=== PATIENT | male | born 1950 | race Caucasian/White ===

== ENCOUNTER → 2020-01-26 12:52 | Outpatient (BNVA) | payer MEDICARE, SELFPAY | PROVIDERS: Family Provider Family Medicine; PCP Family Medicine; Visit Provider Nurse Practitioner | DX: M25.572 Pain in left ankle and joints of left foot (principal) | CPT/HCPCS: 73610 ==

== ENCOUNTER 2020-02-18 07:42 | Outpatient (CLI) | payer MEDICARE, SELFPAY ==
--- NOTE | 2020-02-18 07:49 | US_ITS ---
WS: [id number] RENAL ULTRASOUND HISTORY: UTI/ACUTE RENAL FAILURE COMPARISON: None available. TECHNIQUE: 2-D and color Doppler imaging of the kidney submitted. Right kidney: 10.6 cm x 4.3 cm x 6.0 cm. Normal echogenicity with no hydronephrosis or mass. Left kidney: 11.2 cm x 4.6 cm x 5.3 cm. Normal echogenicity with no hydronephrosis or mass. Aorta: Normal. Urinary Bladder: Normal distention. Enlarged prostate gland measures 4.1 x 3.7 x 3.5 cm. Central calcification. US/US renal BI* [id number] IMPRESSION: Normal renal ultrasound.
== END 2020-02-18 07:43 | disposition home or self-care (01) ==
LOC: US 07:42
PROVIDERS: PCP Family Medicine; Visit Provider Family Medicine
DX: N39.0 Urinary tract infection, site not specified (principal); N17.9 Acute kidney failure, unspecified
CPT/HCPCS: 76770

== ENCOUNTER 2020-05-16 08:27 | Outpatient (CLI) | payer MEDICARE, SELFPAY ==
--- NOTE | 2020-05-16 08:34 | CT_ITS ---
WS: [id number] CT ABDOMEN PELVIS TECHNIQUE: Noncontrast CT of the abdomen and pelvis with coronal and sagittal reformatted images. CLINICAL INFORMATION: RENAL PAIN, RENAL FAILURE ACUTE COMPARISON: None. DLP: 1165.[address] scans at [facility] use at least one of these dose optimization techniques: automat ed exposure control; mA and/or kV adjustment per patient size (includes targeted exams where dose is matched to clinical indication); or iterative reconstruction. FINDINGS: Noncontrast liver is normal. Normal gallbladder. Noncontrast spleen is normal. Normal GE junction. Valarie ng bases are well aerated. Mild fatty atrophy of the pancreas. Adrenal glands are normal. No obstruct ing renal or ureteral calculi. No hydronephrosis in either kidney. Moderate atheromatous disease abdominal aorta. Slightly aneurysmal distal abdominal aorta measuring 2 .5 x 2.5 CM. No periaortic or retroperitoneal lymphadenopathy. Sigmoid diverticulosis. No evidence of acute diverticulitis. Prominent lymph node in the rios hepati s measuring 9 mm. Bladder is contracted. Mild diffuse bladder wall thickening can be seen with chroni c cystitis or bladder outlet obstruction. Prominent prostate measuring 3.0 x5.3 CM. Fat-containing le ft greater than right inguinal hernias. CT/CT kidney stone [id number] IMPRESSION: 1. No obstructing renal or ureteral calculi. No hydronephrosis. 2. Sigmoid diverticulosis. No evidence of acute diverticulitis. 3. Mild diffuse bladder wall thickening can be seen with chronic cystitis or b ladder outlet obstruction. 4. Slightly prominent prostate measuring 3.0 x 5.3 CM. Recommend correlation P SA. 5. Incidental fat-containing inguinal hernia. Small left greater than right fa t-containing inguinal hernias.
== END 2020-05-16 08:28 | disposition home or self-care (01) ==
LOC: RADWPI 08:32
PROVIDERS: PCP Family Medicine; Visit Provider Family Medicine
DX: H66.90 Otitis media, unspecified, unspecified ear (principal); N28.9 Disorder of kidney and ureter, unspecified; N17.9 Acute kidney failure, unspecified; K40.90 Unilateral inguinal hernia, without obstruction or gangrene, not specified as recurrent; N40.0 Benign prostatic hyperplasia without lower urinary tract symptoms; K57.30 Diverticulosis of large intestine without perforation or abscess without bleeding
CPT/HCPCS: 74176

== ENCOUNTER → 2020-06-06 10:05 | Outpatient (BNVA) | payer MEDICARE, SELFPAY | PROVIDERS: PCP Family Medicine; Referring Provider Family Medicine; Visit Provider Urology | DX: Z12.5 Encounter for screening for malignant neoplasm of prostate (principal); N32.89 Other specified disorders of bladder | CPT/HCPCS: 81003; G0103 ==

== ENCOUNTER 2020-08-15 07:38 | Outpatient (CLI) | payer MEDICARE, SELFPAY ==
[2020-08-15 08:08] VITALS: BMI 31.1
--- NOTE | 2020-08-15 08:08 | ECG_ITS ---
[facility] Test Date: 2020-08-15 Pat Name: Jose Guadalupe Sosa Department: Room: Gender: Male Center Medical Specialist: : 1950 Requested By: Malik Phillips Order Number: [id number] Woody MD: Divya Lawrence M.D. Interpretive Statements NAME OF STUDY: EXERCISE SESTAMIBI STRESS TEST INDICATION: Chest Pain, jameson PROCEDURE: The baseline electrocardiogram showed normal sinus rhythm with normal ST-Ts. At the baseline, the patient's blood pressure was 139/63 mm Hg with a heart rate of 88. The patient exercised for 6 minutes on a standard Seven protocol. Patient attained a maximum heart rate of 137 beats per minute(91% of the maximum predicted heart rate) with a blood pressure at the peak exercise of 190/60 mm Hg. The EKG at the peak exercise revealed no significant changes. Patient did not have any chest pain or any significant arrhythmis with the exercise Sestamibi was injected 1 minute prior to the peak exercise During the recovery phase, there were no new changes. Blood pressure at the end of the recovery phase was 153/59 mm Hg with a heart rate of 88 per minute. CONCLUSION: 1. No significant EKG changes with the treadmill exercise 2. No exercise-induced chest pain or cardiac arrhythmia 3. Impaired exercise tolerance, attained a maximum of 7.0 METs 4. Sestamibi/Sestamibi perfusion results pending; see separate report. Electronically Signed On 08-18-2020 23:27:57 CDT by Divya Lawrence M.D. [id number]
--- NOTE | 2020-08-15 08:10 | NMCV_ITS ---
NM billy perf SPECT r/s* [id number] Jose Guadalupe Sosa Age: 69 Gender: M : 1950 Exam Date: 08/15/2020 09:01 Ordering Phys: Malik Lockwood MD Technologist: JAMEE Naranjo Exam Location: [facility] Indications: CHEST PAIN STRESS TEST Please see separate stress test report in [facility] for full findings IMAGE PROTOCOL Rest/Stress 1 Exercise Day Radiopharmaceutical Dose (mCi) Administration Site Administered by Rest: Tc-99m 10.6 IV JAMEE Naranjo Sestamibi Stress:Tc-99m 32.7 IV Zuleyka Lino, HOME APPRAISER Sestamibi Rest: 15-Aug-2020 60 Discovery 630 Stress: 15-Aug-2020 15 Discovery 630 Radiopharmaceutical was injected at 85 % maximum heart rate. Images obtained in supine and prone position. SPECT RESULTS Technical Quality: Excellent Raw Data Analysis: Normal Image Corrections: No attenuation or motion correction applied Summed Stress Score: 0 Summed Rest Score: 0 Summed Difference Score: 0 PERFUSION FINDINGS Fairly uniform myocardial tracer uptake with no significant perfusion abnormalities FUNCTIONAL RESULTS (calculated via Gated SPECT) Stress Image LV EF (%): 77 Stress EDV (mL):70 TID: 0.59 Stress ESV (mL):16 FUNCTIONAL FINDINGS: Segmental wall motion analysis revealing no gross wall motion normalities IMPRESSIONS 1. Unremarkable myocardial perfusion imaging 2. Normal LV ejection fraction 77%. 3. LV wall motion analysis revealing no gross wall motion normalities. 4. Normal LV volume. No significant coronary ischemia, based on the above findings Dr Divya Lawrence MD FACC (Electronically Signed) Final Date: 15 August 2020 14:33 S
--- NOTE | 2020-08-15 11:16 | SUR.PREOP ---
Patient reports no pain or discomfort prior to the start of the procedure.
[2020-08-15 11:17] VITALS: BP 153/59; PULSE 88
== END 2020-08-15 07:39 | disposition home or self-care (01) ==
PROVIDERS: PCP Family Medicine; Visit Provider Family Medicine
DX: R07.9 Chest pain, unspecified (principal); R06.09 Other forms of dyspnea
CPT/HCPCS: 78452; 93017; A9500

== ENCOUNTER → 2020-09-04 11:05 | Outpatient (BNVA) | payer MEDICARE, SELFPAY | PROVIDERS: PCP Family Medicine; Visit Provider Nurse Practitioner Family | DX: N32.89 Other specified disorders of bladder (principal); N40.1 Benign prostatic hyperplasia with lower urinary tract symptoms | CPT/HCPCS: 81003 ==

== ENCOUNTER → 2020-11-04 09:35 | Outpatient (BNVA) | payer MEDICARE, SELFPAY | PROVIDERS: PCP Family Medicine; Visit Provider Urology | DX: N40.1 Benign prostatic hyperplasia with lower urinary tract symptoms (principal); R35.1 Nocturia | CPT/HCPCS: 81003 ==

== ENCOUNTER → 2021-01-05 10:37 | Outpatient (BNVA) | payer MEDICARE, SELFPAY | PROVIDERS: PCP Family Medicine; Visit Provider Urology | DX: N40.1 Benign prostatic hyperplasia with lower urinary tract symptoms (principal); R35.1 Nocturia | CPT/HCPCS: 81003; 87086 ==

== ENCOUNTER → 2021-07-13 15:26 | Outpatient (BNVA) | payer MEDICARE, SELFPAY | PROVIDERS: PCP Family Medicine; Visit Provider Urology | DX: N40.1 Benign prostatic hyperplasia with lower urinary tract symptoms (principal) | CPT/HCPCS: 81003 ==

== ENCOUNTER 2021-11-04 12:28 | Outpatient (CLI) | payer MEDICARE, SELFPAY ==
--- NOTE | 2021-11-04 13:10 | XR_ITS ---
WS: [id number] LEFT KNEE: 2 VIEW(S) TECHNIQUE: AP and lateral. HISTORY: ARTHRITIS/GOUT COMPARISON: 04/12/2017 No fracture or dislocation. Mild tricompartment osteoarthritis. No erosions. Mild spurring of the tibial spines. Small suprapatellar joint effusion. No soft tissue abnormality. XR/XR knee LT 1-2V [id number] IMPRESSION: Mild tricompartment osteoarthritis. Small joint effusion.
--- NOTE | 2021-11-04 13:10 | XR_ITS ---
WS: [id number] RIGHT KNEE: 2 VIEW(S) TECHNIQUE: AP and lateral. HISTORY: ARTHRITIS/GOUT COMPARISON: None. Mild tricompartment osteoarthritis. Joint space narrowing and small spurs. Osteophytes from the super ior and inferior patella. No acute fracture or dislocation. No joint effusion. IMPRESSION: Mild tricompartment osteoarthritis.
[2021-11-04 14:55] LABS: Basophils % 0.5 %; Eosinophils # 0.2 10^3/uL (0.0-0.8); Eosinophils % 2.3 %; Hematocrit 41.4 % (42.0-52.0); Hemoglobin 13.7 g/dL (11.7-16.6); Lymphocytes # 2.3 10^3/uL (0.8-4.8); Lymphocytes % 31.8 %; Mean Corpuscular HGB Conc 33.1 g/dL (30.0-36.0); Mean Corpuscular Hemoglobin 31.5 pg (28.0-34.0); Mean Corpuscular Volume 95.2 fl (80-94); Mean Platelet Volume 10.2 fL (7.4-10.4); Monocytes # 0.5 10^3/uL (0.2-0.9); Monocytes % 6.9 %; Neutrophils # 4.27 10^3/uL (1.8-7.7); Nucleated Red Blood Cells % 0 %; Platelet Count 228 10^3/cmm (130-400); Red Blood Count 4.35 10^6/uL (4.1-5.3); Red Cell Distribution Width 13.7 % (12.1-15.1); White Blood Count 7.4 10^3/uL (4.0-10.0)
[2021-11-04 15:14] LABS: Alanine Aminotransferase 30 U/L (0-41); Albumin Level 4.4 g/dL (3.5-5.2); Alkaline Phosphatase 149 IU/L (40-130); Anion Gap 15.4 (5-19); Aspartate Amino Transferase 24 U/L (0-40); Blood Urea Nitrogen 22 mg/dL (8-23); C Reactive Protein 6.9 mg/L (0.0-4.9); Calcium 9.6 mg/dL (8.5-10.5); Carbon Dioxide 26 mmol/L (22-29); Chloride 101 mmol/L (98-107); Globulin 3.3 g/dL (1.3-4.6); Glucose 106 mg/dL (65-115); Osmolality Calculated 290 mOsm/kg (285-295); Potassium 4.4 mmol/L (3.5-5.1); Sodium 138 mmol/L (136-145); Total Bilirubin 0.3 mg/dL (0.15-1.2); Total Protein 7.7 g/dL (6.6-8.7); Uric Acid 4.5 mg/dL (3.4-7.0)
[2021-11-06 13:16] LABS: Erythrocyte Sedimentation Rate 45 mm/hr (0-10)
[2021-11-06 16:47] LABS: Anti-Double Strand DNA AB 1 IU/mL; Jo-1 Antibody <1.0 NEG AI (<1.0 NEG); SM/RNP Antibodies <1.0 NEG AI (<1.0 NEG); SS-B/LA IGG <1.0 NEG AI (<1.0 NEG); Scleroderma Ab(Scl-70) Ab <1.0 NEG AI (<1.0 NEG); Ss-A/Ro Igg <1.0 NEG AI (<1.0 NEG)
== END 2021-11-04 12:29 | disposition home or self-care (01) ==
PROVIDERS: PCP Family Medicine; Visit Provider Family Medicine
DX: M19.90 Unspecified osteoarthritis, unspecified site (principal); M10.9 Gout, unspecified
CPT/HCPCS: 73560; 80053; 84550; 85025; 85651; 86140; 86225; 86235; 86431

== ENCOUNTER → 2021-12-11 10:25 | Outpatient (BNVA) | payer MEDICARE, SELFPAY | PROVIDERS: PCP Family Medicine; Visit Provider Family Medicine | DX: N18.30 Chronic kidney disease, stage 3 unspecified (principal); R35.1 Nocturia; N40.1 Benign prostatic hyperplasia with lower urinary tract symptoms | CPT/HCPCS: 80069; 82043; 85025 ==

== ENCOUNTER → 2022-07-19 13:33 | Outpatient (BNVA) | payer MEDICARE, SELFPAY | PROVIDERS: PCP Family Medicine; Visit Provider Podiatrist Foot & Ankle Surgery | DX: M72.2 Plantar fascial fibromatosis (principal); M21.6X2 Other acquired deformities of left foot | CPT/HCPCS: 20550; 73630; 99204 ==

== ENCOUNTER → 2022-08-03 14:50 | Outpatient (BNVA) | payer MEDICARE, SELFPAY | PROVIDERS: PCP Family Medicine; Visit Provider Podiatrist Foot & Ankle Surgery | DX: M72.2 Plantar fascial fibromatosis (principal); M21.6X2 Other acquired deformities of left foot | CPT/HCPCS: 99213 ==

== ENCOUNTER → 2022-08-17 14:12 | Outpatient (BNVA) | payer MEDICARE, SELFPAY | PROVIDERS: PCP Family Medicine; Visit Provider Podiatrist Foot & Ankle Surgery | DX: M72.2 Plantar fascial fibromatosis (principal); M21.6X2 Other acquired deformities of left foot | CPT/HCPCS: 99213 ==

== ENCOUNTER → 2022-12-21 09:55 | Outpatient (BNVA) | payer MEDICARE, SELFPAY | PROVIDERS: PCP Family Medicine; Visit Provider Family Medicine | DX: I10 Essential (primary) hypertension (principal); R35.1 Nocturia; N40.1 Benign prostatic hyperplasia with lower urinary tract symptoms; M75.101 Unspecified rotator cuff tear or rupture of right shoulder, not specified as traumatic; M12.811 Other specific arthropathies, not elsewhere classified, right shoulder; M12.812 Other specific arthropathies, not elsewhere classified, left shoulder; M75.102 Unspecified rotator cuff tear or rupture of left shoulder, not specified as traumatic | CPT/HCPCS: 80053; 80061; 82043; 84153; 85025 ==

== ENCOUNTER → 2023-01-18 08:58 | Outpatient (BNVA) | payer MEDICARE, SELFPAY | PROVIDERS: PCP Family Medicine; Referring Provider Family Medicine; Visit Provider Student in an Organized Health Care Education/Training Program | DX: M12.812 Other specific arthropathies, not elsewhere classified, left shoulder; M75.42 Impingement syndrome of left shoulder | CPT/HCPCS: 20610; 73030; 99204; J3301 ==

== ENCOUNTER → 2023-01-20 10:13 | Outpatient (BNVA) | payer MEDICARE, SELFPAY | PROVIDERS: PCP Family Medicine; Referring Provider Family Medicine; Visit Provider Dermatology | DX: L57.0 Actinic keratosis (principal); L82.0 Inflamed seborrheic keratosis; L82.1 Other seborrheic keratosis; L72.0 Epidermal cyst; D18.01 Hemangioma of skin and subcutaneous tissue; L73.8 Other specified follicular disorders; Z85.828 Personal history of other malignant neoplasm of skin | CPT/HCPCS: 17000; 17003; 17110; 99203 ==

== ENCOUNTER 2023-01-26 07:01 | Outpatient (RCR) | payer MEDICARE, SELFPAY | END 2023-02-05 23:59 | disposition home or self-care (01) | LOC: SPT 07:01 | PROVIDERS: PCP Family Medicine; Visit Provider Student in an Organized Health Care Education/Training Program | DX: M75.42 Impingement syndrome of left shoulder (principal) | CPT/HCPCS: 97110; 97162 ==

== ENCOUNTER 2023-02-06 06:00 | Outpatient (RCR) | payer MEDICARE, SELFPAY | END 2023-03-08 23:59 | disposition home or self-care (01) | LOC: SPT 06:00 | PROVIDERS: PCP Family Medicine; Visit Provider Student in an Organized Health Care Education/Training Program | DX: M75.42 Impingement syndrome of left shoulder (principal) | CPT/HCPCS: 97110; G0283 ==

== ENCOUNTER 2023-03-09 06:00 | Outpatient (RCR) | payer MEDICARE, SELFPAY | END 2023-03-24 23:59 | disposition home or self-care (01) | LOC: SPT 06:00 | PROVIDERS: PCP Family Medicine; Visit Provider Student in an Organized Health Care Education/Training Program | DX: M75.42 Impingement syndrome of left shoulder (principal) | CPT/HCPCS: 97110 ==

== ENCOUNTER → 2023-04-21 09:48 | Outpatient (BNVA) | payer MEDICARE, SELFPAY | PROVIDERS: PCP Family Medicine; Visit Provider Student in an Organized Health Care Education/Training Program | DX: M75.101 Unspecified rotator cuff tear or rupture of right shoulder, not specified as traumatic (principal); M12.811 Other specific arthropathies, not elsewhere classified, right shoulder; M12.812 Other specific arthropathies, not elsewhere classified, left shoulder; M75.102 Unspecified rotator cuff tear or rupture of left shoulder, not specified as traumatic | CPT/HCPCS: 20610; 99213; J3301 ==

== ENCOUNTER → 2023-06-30 09:43 | Outpatient (BNVA) | payer MEDICARE, SELFPAY | PROVIDERS: PCP Family Medicine; Visit Provider Student in an Organized Health Care Education/Training Program | DX: S46.002A Unspecified injury of muscle(s) and tendon(s) of the rotator cuff of left shoulder, initial encounter; X58.XXXA Exposure to other specified factors, initial encounter | CPT/HCPCS: 73030; 99213 ==

== ENCOUNTER → 2023-07-26 08:12 | Outpatient (BNVA) | payer MEDICARE, SELFPAY | PROVIDERS: PCP Family Medicine; Visit Provider Student in an Organized Health Care Education/Training Program | DX: M75.101 Unspecified rotator cuff tear or rupture of right shoulder, not specified as traumatic; M12.811 Other specific arthropathies, not elsewhere classified, right shoulder; M12.812 Other specific arthropathies, not elsewhere classified, left shoulder; M75.102 Unspecified rotator cuff tear or rupture of left shoulder, not specified as traumatic | CPT/HCPCS: 20610; 99213; J3301 ==

== ENCOUNTER 2023-08-10 08:42 | Outpatient (CLI) | payer MEDICARE, SELFPAY ==
--- NOTE | 2023-08-10 09:30 | MR_ITS ---
WS: [id number] MRI LEFT SHOULDER HISTORY: shoulder pain COMPARISON: 01/01/2014 TECHNIQUE: Multiplanar sequences of the shoulder joint are submitted. Moderate AC joint arthritis. Osteophyte formation from the distal clavicle and acromion encroaching u huber the myotendinous portion of the supraspinatus. Similar to the prior study. There is fluid within the AC joint. Mild subacromial impingement due to downsloping of the acromion. Biceps tendon normal p osition in the bicipital groove. No os acromion. Moderately high riding humeral head. Full-thickness tear of the supraspinatus tendon distally. Tendon is retracted to the medial humeral head. There is irregularity and fraying along both the bursal and articular surfaces of the tendon. There is a large fluid gap distally. Significant progression of roger praspinatus muscle atrophy since the prior exam. Insertion site tear of the infraspinatus tendon is identified. There is fluid extension intrasubstanc e along the tendon sheath. This tear was present on the prior study but progressed. Moderate progress prosper atrophy of the infraspinatus muscle. Subscapularis tendon is intact. The previously described insertion site tear is not readily identifie d on today's exam. There is increased thickening and T2 signal within the subscapularis tendon most c onsistent with advanced tendinopathy. Progressive atrophy of the subscapularis muscle. Increased T2 signal extends into the rotator cuff interval. Mild osteophytic ridging around the humeral head. Internal derangement involving the labrum. Surface irregularities. No definite tears are identified. Loss of cartilage surround the humeral head and gle noid with osteoarthritic changes. IMPRESSION: 1. Complete tear of the supraspinatus tendon with retraction to the medial humeral head. Fraying tobias ng the surfaces of the retracted supraspinatus tendon. This was also described on 01/01/2014. 2. Insertion site tear of the infraspinatus tendon with intrasubstance degeneration. 3. Marked tendinopathy in subscapularis tendon but no tear is identified. 4. There is been significant progressive atrophy and volume loss involving the supraspinatus muscle. Lesser atrophy and volume loss in the infraspinatus and subscapularis muscles. 5. Moderate AC joint arthritis with osteophyte encroachment upon the supraspinatus myotendinous inse rtion site. 6. Degenerative changes in the labrum but no tear identified. 7. 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
== END 2023-08-10 08:43 | disposition home or self-care (01) ==
LOC: RAD 08:45
PROVIDERS: PCP Family Medicine; Visit Provider Student in an Organized Health Care Education/Training Program
DX: M25.512 Pain in left shoulder (principal); M75.122 Complete rotator cuff tear or rupture of left shoulder, not specified as traumatic; M19.012 Primary osteoarthritis, left shoulder
CPT/HCPCS: 73221

== ENCOUNTER → 2023-08-30 07:47 | Outpatient (BNVA) | payer MEDICARE, SELFPAY | PROVIDERS: PCP Family Medicine; Visit Provider Student in an Organized Health Care Education/Training Program | DX: M75.102 Unspecified rotator cuff tear or rupture of left shoulder, not specified as traumatic (principal); M75.42 Impingement syndrome of left shoulder; M75.22 Bicipital tendinitis, left shoulder; M19.012 Primary osteoarthritis, left shoulder | CPT/HCPCS: 99214 ==

== ENCOUNTER → 2023-09-20 11:09 | Outpatient (BNVA) | payer MEDICARE, SELFPAY | PROVIDERS: PCP Family Medicine; Visit Provider Nurse Practitioner Family | DX: L57.0 Actinic keratosis (principal); L82.0 Inflamed seborrheic keratosis; L82.1 Other seborrheic keratosis; L72.0 Epidermal cyst; D18.01 Hemangioma of skin and subcutaneous tissue | CPT/HCPCS: 17000; 17110; 99213 ==

== ENCOUNTER 2023-09-21 10:12 | Day surgery (SDC) | payer MEDICARE, SELFPAY ==
[2023-09-21] VITALS (11 sets, daily range): BP systolic 145–171; BP diastolic 56–88; PULSE 58–69; RESP 15–18; TEMP 36.1–36.6; O2SAT 92–100
[2023-09-21] MEDS: sodium chloride 0.9% 1,000 ML 30 ML IV (10:39)
[2023-09-21] MEDS: acetaminophen 1,000 MG/100 ML PIGGYBACK 400 MG IV (10:42)
--- NOTE | 2023-09-21 10:42 | ANES.PREANE2 ---
Pre-Anesthetic Assessment Height/Weight: Height 1.83 m Weight 102.058 kg Temp Pulse Resp BP Pulse Ox O2 Del Method 97.6 F 58 L 18 159/88 97 Room Air 09/21/23 10:27 09/21/23 10:27 09/21/23 10:27 09/21/23 10:27 09/21/23 10:09/21/23 10:27 Operation Date: 09/21/23 12:00 Proposed Procedures p Shoulder Arthroscopy(Left) - Ronald Cannon, DO s Subacromial Decompression(Left) - Ronald Cannon, DO s AC Joint Resection(Left) - Ronald Nina, DO s Rotator Cuff Repair - Arthroscopy Versus debridement(Left) - Ronald Nina, DO s Bicep Tenotomy Versus Bicep tenodesis(Left) - Ronald Cannon, DO s Subacromial Ballon Spacer / possible(Left) - Ronald Nina, DO Familial anesthetic complications: none Was Beta Jen taken within 24 hours: Yes Was Clonidine taken within 24 hours: N/A Last intake: Intake Last Liquid Date 09/20/23 Last Liquid Time 23:00 Last Solid Date 09/20/23 Last Solid Time 23:00 Social No alcohol and No tobacco Occasionally smokes radha Exam alert, oriented x 3, clear to auscultation bilaterally and regular rate & rhythm Airway Submandibular: within normal limits Cervical ROM: within normal limits Mallampati: Class II Dentition: chipped CV/HEM Hypertension Metabolic Hyperlipidemia Musc/skel Osteoarthritis/DJD Neuropsych chronic opioid Anesthetic Plan ASA status: 3 Anesthesia: General and Regional (specify below) (Left interscalene nerve blk) Medications/Allergies Home Medications Medication Instructions Recorded Confirmed Last Taken Type bupropion HCl 300 mg 24 hr tablet, 300 mg PO QAM #90 tabs 06/09/23 09/20/23 09/19/23 Rx extended release hydrocodone 5 mg-acetaminophen 325 1 tab PO Q8H PRN pain 30 days #90 06/20/23 09/20/23 Unknown Rx mg tablet tabs simvastatin 20 mg tablet (Zocor) 20 mg PO .at bedtime #90 tabs 06/20/23 09/20/23 09/19/23 Rx latanoprost 0.005 % eye drops 1 drp ophthalmic (eye) DAILY 06/30/23 09/20/23 09/19/23 History allopurinol 300 mg tablet 300 mg PO DAILY #90 tabs 07/05/23 09/20/23 09/19/23 Rx amlodipine 10 mg tablet 10 mg PO DAILY 09/20/23 09/21/23 09/21/23 History metoprolol succinate 100 mg 100 mg PO DAILY 09/20/23 09/21/23 09/21/23 History tablet,extended release 24 hr tamsulosin 0.4 mg capsule 0.4 mg PO BEDTIME 09/20/23 09/20/23 09/19/23 History hydrocodone 7.5 mg-acetaminophen 1 tab PO Q6H PRN pain #20 tabs 09/21/23 Unknown Rx 325 mg tablet ondansetron 4 mg disintegrating 4 mg PO Q8H PRN nausea and 09/21/23 Unknown Rx tablet vomiting 3 days #9 tabs Allergies Allergy/AdvReac Type Severity Reaction Status Date / Time sulfamethoxazole Allergy Unknown Unknown Verified 08/30/23 08:02 [From Bactrim] trimethoprim [From Bactrim] Allergy Unknown Unknown Verified 08/30/23 08:02 [facility] Anesthesia Medical History Rotator cuff tear arthropathy of both shoulders BPH loc w urin obs/LUTS Diverticulosis CKD (chronic kidney disease), stage III MRSA (methicillin resistant Staphylococcus aureus) Gout Basal cell carcinoma of head 2 years ago HTN (hypertension) Bladder wall thickening Surgical History Hx of surgical amputation of finger Hx of cataract extraction Hx of detached retina repair Family History Father , AT AGE 52 CAD (coronary artery disease) Mother , at age 94 No problems noted. Social History Smoking and tobacco/nicotine status: former use of tobacco/nicotine Alcohol intake: current Alcohol intake frequency: 0-2 Drinks per Day Substance/Drug Use: never Marital status: / Current occupational status: retired Data Anesthesia Cardiac Studies: Sestamibi Stress Test (Cardiology) 08/15/20
[2023-09-21] MEDS: scopolamine 1.5 Patch 1 PATCH TRANSDERMA (10:45)
[2023-09-21] MEDS: ketorolac 30 mg/mL INJ IVP (10:46)
--- NOTE | 2023-09-21 10:47 | ECG_ITS ---
[facility] Test Date: 2023-09-21 Pat Name: Jose Guadalupe Sosa Department: Room: Gender: Male Resident Care Coordinator: : 1950 Requested By: Phil Gonzalez Order Number: [id number] Woody MD: Blair Alvarado M.D. Measurements Intervals [place] Rate: 57 P: 43 NE: 176 QRS: 6 QRSD: 95 T: 21 QT: 413 QTc: 405 Interpretive Statements SINUS BRADYCARDIA VOLTAGE CRITERIA FOR LVH [MEETS CRITERIA IN ONE OF: R(aVL), S(V1), R(V5), R(V5/V6)+S(V1)] No previous ECG available for comparison Electronically Signed On 09-21-2023 16:28:10 CDT by Blair Alvarado M.D. [id number]
[2023-09-21 11:16] LABS: Basophils % 0.4 %; Eosinophils # 0.1 10^3/uL (0.0-0.8); Eosinophils % 1.1 %; Lymphocytes # 2.5 10^3/uL (0.8-4.8); Lymphocytes % 29.3 %; Mean Corpuscular HGB Conc 33.7 g/dL (30-55); Mean Corpuscular Hemoglobin 33.1 pg (27-33); Mean Corpuscular Volume 98.3 fl (82-101); Monocytes # 0.6 10^3/uL (0.2-0.9); Monocytes % 6.6 %; Neutrophils % 61.9 %; Nucleated Red Blood Cells % 0 %; Platelet Count 187 10^3/cmm (157-399); Red Blood Count 4.17 10^6/uL (3.85-5.65); Red Cell Distribution Width 13.5 % (12.1-15.1); White Blood Count 8.54 10^3/uL (3.29-11.43)
--- NOTE | 2023-09-21 11:17 | W.PM.OPSUD ---
Surgery/Procedure H&P Update DATE OF PROCEDURE: September 21, 2023 DATE H&P PERFORMED: 08/25/23 H&P UPDATE INFORMATION: I have reviewed H&P completed within last 30 days, I have examined patient prior to procedure and No changes to prior documentation PREOP DIAGNOSIS: Left shoulder subacromial impingement, AC arthritis, rotator cuff tear sven PRIMARY INDICATION FOR PROCEDURE: Left shoulder subacromial impingement, AC joint arthritis rotator cuff tear, biceps tendinitis PLANNED PROCEDURE: Operation Date: 09/21/23 12:00 Proposed Procedures p Shoulder Arthroscopy(Left) - Ronald Wood DO s Subacromial Decompression(Left) - DO isabel Ozuna AC Joint Resection(Left) - DO isabel Ozuna Rotator Cuff Repair - Arthroscopy Versus debridement(Left) - DO isabel Ozuna Bicep Tenotomy Versus Bicep tenodesis(Left) - Ronald Wood DO s Subacromial Ballon Spacer / possible(Left) - Ronald Wood DO
[2023-09-21] MEDS: ceFAZolin 2,000 MG in sodium chloride 0.9% (plus) 50 ML 100 MG IV (11:25)
--- NOTE | 2023-09-21 11:32 | ANES.PROC ---
Anesthesia Procedures Procedure/Date: 09/21/23 Nerve Block ^: Nerve Block 1: Main Anesthesia: general anesthesia Time Out Performed: Yes Consent: requested by attending/covering physician, from patient, risks and benefits reviewed and patient agrees to proceed Nerve block location: interscalene (left) Anesthesia monitors applied: pulse oximetry, EKG, BP cuff and oxygen Nerve block position: semi sitting Anesthetic Used: ropivicaine 0.5% Amount of anesthesia used (mL): 30 Ultrasound used to: recognize landmarks and visualize and ID brachial plexus Nerve Stimulator Used?: No Interscalene/Femoral BLK: 2 stimuplex 22 g needle used for position and inplane approach Injection: neg aspiration of heme Patient Tolerated Procedure: well Complications: none
[2023-09-21 11:40] LABS: Anion Gap 14.4 (5-19); Blood Urea Nitrogen 17 mg/dL (8-23); Calcium 8.8 mg/dL (8.5-10.5); Carbon Dioxide 25 mmol/L (22-29); Chloride 105 mmol/L (98-107); Creatinine Clr Calc Pharmacy 81.3149; Glucose 91 mg/dL (65-115); Osmolality Calculated 291 mOsm/kg (285-295); Potassium 4.4 mmol/L (3.5-5.1); Sodium 140 mmol/L (136-145)
[2023-09-21] MEDS: EPINEPHrine 1 mg/mL INJ 2 MG XX (12:06)
--- NOTE | 2023-09-21 13:45 | P.BOP_ITS ---
Date of Procedure: [September 21, 2023] Surgeon: [Dr. Wood DO] Nutrition Faculty Member(s): [Sam Wood PA-C] Procedure(s) performed: 1.Left shoulder diagnostic and surgical arthroscopy 2. Biceps tendon tenotomy 3. Loose body removal 4. Labral debridement 5. Subacromial decompression 6. AC joint resection 7. Glenohumeral joint chondroplasty 8. Large rotator cuff repair (cable reconstruction) 9. Balloon spacer Findings of the procedure(s): [Left shoulder biceps tendinitis with fraying, loose bodies seen, labral tearing, subacromial bursitis, AC joint arthritis, glenohumeral joint with rating of 2-3 chondromalacia. Large rotator cuff tear] Estimated blood loss: [15 mL] Specimen(s) removed: [N/A] Post-operative diagnosis: [Left shoulder biceps tendinitis. loose bodies seen, labral tearing, subacromial bursitis, AC joint arthritis, glenohumeral joint with rating of 2-3 chondromalacia. Large rotator cuff tear]
--- NOTE | 2023-09-21 13:57 | PM.PACU ---
PACU note Narrative: Patient is a 72-year-old male just underwent a left shoulder scope with rotator cuff repair and balloon spacer. Patient transferred to PACU in stable condition. Pain is well controlled. shoulder Dressing on , dry and in place. Patient's operative arm is in a shoulder immobilizer. Patient is awake and alert and able to respond to my questions accordingly. Patient's fingers are warm with good perfusion. Normal cap refill under 2 seconds. Radial pulse 2+. unable to assess further range of motion in arm due to sling. sensation to hand intact Exam: awake Disposition: discharged
--- NOTE | 2023-09-21 13:59 | P.OP_ITS ---
Operative Report Date of procedure: September 21, 2023 Surgeon: Ronald Wood DO Manager Private: Sam Wood PA-C: PA was necessary for assistance in this case with shoulder positioning to execute the procedure, assistance with instrumentation, as well as implant fixation when necessary, assist with wound closure and dressing application. Procedure: Preoperative diagnosis: Left shoulder subacromial impingement, AC joint arthritis, rotator cuff tear, biceps tendinitis Post-op diagnosis:? Left?shoulder labral tear Left?shoulder biceps tendon tear Left?shoulder rotator cuff tear massive Left?shoulder AC joint arthritis Left?shoulder subacromial bursitis/impingement Left shoulder multiple loose bodies Left shoulder glenohumeral joint chondromalacia Procedure done: Left?shoulder diagnostic and surgical arthroscopy with arthroscopic rotator cuff repair (massive rotator cuff tear unable to perform complete full repair?rotator cable reconstruction/partial repair) Left?shoulder diagnostic and surgical arthroscopy biceps tenotomy Left?shoulder diagnostic and surgical arthroscopy labral debridement Left?shoulder diagnostic and surgical arthroscopy acromioclavicular joint resection Left?shoulder diagnostic and surgical arthroscopy subacromial decompression (acromioplasty and bursectomy) Left shoulder diagnostic and surgical arthroscopy with removal of multiple loose bodies Left shoulder diagnostic and surgical arthroscopy with glenohumeral joint chondroplasty Left shoulder diagnostic and surgical arthroscopy with subacromial balloon spacer given massive rotator cuff and only partial repair Surgeon: Ronald Wood DO Estimated blood loss: [15]mL IV fluids: See anesthesia record Implants: Arthrex 4.75 swivel lock x 2 Arthrex?scorpion and suture tape [employer] Inspace subacromial balloon spacer Complications: None Condition: stable Disposition: same day Brief History: Patient been seen and worked up in the outpatient setting for Left?shoulder pain.? Pt had an MRI which showed findings below.? Patient's failed conservative treatment and has weakness.? We talked about treatment options far as nonoperative and operative intervention..? We talked about risk benefits complication alternatives surgical nonsurgical treatment options.? Understanding risk of surgery pt agrees to proceed with surgical intervention.? All questions have been answered at this time.? Patient elects proceed with surgery and consent obtained in office. IMPRESSION: 1. Complete tear of the supraspinatus tendon with retraction to the medial humeral head. Fraying along the surfaces of the retracted supraspinatus tendon. This was also described on 01/01/2014. 2. Insertion site tear of the infraspinatus tendon with intrasubstance degeneration. 3. Marked tendinopathy in subscapularis tendon but no tear is identified. 4. There is been significant progressive atrophy and volume loss involving the supraspinatus muscle. Lesser atrophy and volume loss in the infraspinatus and subscapularis muscles. 5. Moderate AC joint arthritis with osteophyte encroachment upon the supraspinatus myotendinous insertion site. 6. Degenerative changes in the labrum but no tear identified. 7. 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 Procedure: Patient seen evaluated in the preoperative holding area.? Consent reviewed and signed with patient.? Once again reviewed patient's MRI results as well as? planned surgical intervention.? Correct extremity marked.? Patient seen evaluated by anesthesia department received regional anesthesia.? Once ready for surgery was taken back to the operative suite.? Patient then subsequently underwent anesthesia per the anesthesia department was transported onto the OR table.? Patient was then placed into a lateral decubitus position with a beanbag and was appropriately secured to the bed.? All bony prominences well-padded.? Patient then had the Left upper extremity was then prepped and draped in standard orthopedic fashion.? Patient received appropriate preoperative antibiotics.? Final timeout performed. The Left upper extremity was then held in hanging from traction utilizing sterile technique.? Next started with standard diagnostic and surgical arthroscopy with posterior portal position introduced arthroscope into the glenohumeral joint.? Visualized the glenohumeral joint I then introduced a spinal needle within the rotator cuff interval to confirm appropriate anterior portal placement.? Once this was confirmed I then made my small incision and then introduced my arthroscopic shaver into the glenohumeral joint.? After thorough debridement was clearly evident patient had a significant erythema as well as positive liftoff sign of the biceps anchor and biceps tendon tear as it was pulled within the joint.? Decision at this time was made to perform a biceps tenotomy.? Introduced a thermal wand and a biceps tenotomy was performed to completion With appropriate release.? Next I evaluated the subscapularis tendon which was intact and no evidence of tear. ?Next there was significant labral tearing at biceps anchor and circumferential.? ? I then subsequently utilized a a arthroscopic shaver and thermal wand to perform a labral debridement.? This point time I then visualized the glenohumeral joint.? The glenohumeral joint was found to have grade 2-3? chondromalacia throughout.? Performed [place] plasty of the glenohumeral joint. There was multiple small fragments of loose bodies of cartilage floating within the glenohumeral joint and utilize arthroscopic shaver to evacuate and remove all loose bodies. Thermal wand was used to kneel the chondroplasty edges to prevent any further propagation loose bodies. Infrapatellar pouch was free of loose bodies from viewing the posterior portal.? Next a visualized the rotator cuff superiorly and there was found to be a massive rotator cuff tear. I utilized a spinal needle to myles this location.? ?This completed my work within the glenohumeral joint all fluid was suctioned free of the joint.? ?Next I reintroduced the arthroscope posteriorly.? And went to the subacromial space.? I established my lateral working portal at the site of which my spinal needle was marking of the rotator cuff tear.? Thermal wand was then introduced laterally and then I subsequently performed extensive bursectomy of the subacromial space.? Patient had a large anterior bone spur.? At this point time I proceeded with my AC joint resection thermal wand was used and track to the anterior edge of the acromion and then tracked all the way to the AC joint.? Once identified the AC joint this was very arthritic in nature.? Thermal wand was placed anteriorly to establish appropriate plane for AC joint resection.? Once appropriate margins and anterior inferior and anterior capsule was released I then introduced arthroscopic shaver and a bur and performed AC joint resection of both the acromion to cope plane at the AC joint and a distal clavicle resection was then performed totaling 1 cm in size and was confirmed.? This completed my AC joint resection and I then introduced the arthroscopic shaver laterally while continuing to view posteriorly.? I then performed an acromioplasty to complete my subacromial decompression prior to fixing the rotator cuff tear.? Next the arthroscopic shaver was then used previous spinal needle spot that is marked the small hole in the rotator cuff this was consistent with massive rotator cuff tear with retraction all the way to the face of the glenoid. I utilized multiple release techniques to mobilize the rotator cuff which extended from the supraspinatus all the way to the infraspinatus. At this point in time after doing my releases and grabbing the rotator cuff I was able to pull this about a quarter of [address] way. As result at this point in time I elected to perform a partial repair by performing a rotator cable reconstruction in hopes to add and prevent further propagation of the humeral head. I utilized a [employer] stitch to grab and have a tag stitch to keep appropriate traction while performing cable reconstruction. I utilized Arthrex fiber tape and started at the mid substance took an scorpion passer and took multiple passes around the rotator cuff anteriorly all the way to the anterior footprint and then loaded a 4.75 swivel lock punched and placed a 4.75 swivel lock anchor anteriorly while maintaining as much excursion to recreate the rotator cable suspension bridge. Next I then took the posterior limb of the suture and made multiple passes with the scorpion under direct visualization all the way to the infraspinatus and then reapproximated the posterior portion and used a 4.75 swivel lock and loaded this with suture, punched in place 4.75 swivel lock anchor posteriorly at its lateral footprint. This recreated the rotator cable however there still was significantly exposed humeral head at this point time I elected to place a subacromial balloon spacer for humeral head added depression given a only partial rotator cuff repair. I then subsequently took appropriate measurements of the subacromial space which was for a small subacromial balloon spacer by [employer] space and space system. I utilized their deployment device and subsequently placed this to appropriate depth remove the insertion guide and then subsequently filled this up to appropriate amount per protocol and then subsequently deployed and removed the insertion device this was found to be stable and took the shoulder through range of motion and had excellent positioning and no excessive movement and protected the humeral head from the acromion. This completed the surgery.? All fluid was suctioned from the?shoulder.? All instruments were removed.? The lateral incision was then closed with nylon stitches.? As well as the portal sites closed with portal nylon stitches.? Xeroform 4 x 4's ABD and tape was then applied to the Left?shoulder and was placed into a?shoulder abduction pillow sling for rotator cuff repair.? Patient was then awakened from anesthesia and then taken back to PACU in stable condition.? Patient tolerated procedure without any issues. Disposition: Patient taken back in stable condition recovering well.? Dressings on in place clean dry and intact.? Will be nonweightbearing to the Left upper extremity.? Follow rotator cuff repair protocol.? Patient to follow-up with me in the office in 2 weeks.? Patient will receive appropriate discharge instruction as well as pain medication postoperatively.? All questions answered.? We will contact the office for any questions or concerns.
--- NOTE | 2023-09-21 14:52 | ANE.PACU2 ---
Inpatient post-anesthesia follow up: Airway intact: Yes Vital signs: Temperature 97.7 F Pulse Rate 69 Respiratory Rate 16 Blood Pressure 153/78 Pulse Oximetry 95 Oxygen Delivery Me thod Room Air Oxygen Flow Rate Fraction of Inspir ed Oxygen Hydration adequate: Yes Nausea and vomiting: No Pain level: 1 Mental status: Baseline
== END 2023-09-21 15:20 | disposition home or self-care (01) ==
PROVIDERS: Anesthesiology; PCP Family Medicine; Visit Provider Student in an Organized Health Care Education/Training Program
PROC: (CPT 29805; principal; 2023-09-21 11:40)
PROC: (CPT 29826; 2023-09-21 11:40)
PROC: 0RSH0ZZ Reposition Left Acromioclavicular Joint, Open Approach (ICD-10-PCS; CPT 29826; 2023-09-21 11:40)
PROC: (CPT 29999; 2023-09-21 11:40)
DX: M75.102 Unspecified rotator cuff tear or rupture of left shoulder, not specified as traumatic (principal); S43.402A Unspecified sprain of left shoulder joint, initial encounter; S46.122A Laceration of muscle, fascia and tendon of long head of biceps, left arm, initial encounter; X58.XXXA Exposure to other specified factors, initial encounter; M19.012 Primary osteoarthritis, left shoulder; M25.812 Other specified joint disorders, left shoulder; M24.012 Loose body in left shoulder; M94.212 Chondromalacia, left shoulder; E78.5 Hyperlipidemia, unspecified; Z79.891 Long term (current) use of opiate analgesic; N40.1 Benign prostatic hyperplasia with lower urinary tract symptoms; N13.8 Other obstructive and reflux uropathy; I12.9 Hypertensive chronic kidney disease with stage 1 through stage 4 chronic kidney disease, or unspecified chronic kidney disease; N18.30 Chronic kidney disease, stage 3 unspecified; Z87.891 Personal history of nicotine dependence
CPT/HCPCS: 29826; 29827; 29828; 36415; 80048; 85025; 93005; C1713; C1889; J0131; J0171; J0690; J1100; J1885; J2250; J2405; J2704; J2710; J2795; J3010; J3490; J7030

== ENCOUNTER → 2023-09-26 12:00 | Outpatient (BNVA) | payer MEDICARE, SELFPAY | PROVIDERS: PCP Family Medicine; Visit Provider Family Medicine | DX: E78.5 Hyperlipidemia, unspecified (principal) | CPT/HCPCS: 80053; 80061 ==

== ENCOUNTER → 2023-10-06 08:35 | Outpatient (BNVA) | payer MEDICARE, SELFPAY | PROVIDERS: PCP Family Medicine; Visit Provider Student in an Organized Health Care Education/Training Program | DX: Z98.890 Other specified postprocedural states (principal); T81.41XA Infection following a procedure, superficial incisional surgical site, initial encounter; Y83.8 Other surgical procedures as the cause of abnormal reaction of the patient, or of later complication, without mention of misadventure at the time of the procedure | CPT/HCPCS: 99024 ==

== ENCOUNTER → 2023-10-28 14:00 | Outpatient (BNVA) | payer MEDICARE, SELFPAY | PROVIDERS: PCP Family Medicine; Visit Provider Student in an Organized Health Care Education/Training Program | DX: Z98.890 Other specified postprocedural states (principal) | CPT/HCPCS: 99024 ==

== ENCOUNTER 2023-11-02 07:02 | Outpatient (RCR) | payer MEDICARE, SELFPAY | END 2023-11-06 23:59 | disposition home or self-care (01) | LOC: SPT 07:02 | PROVIDERS: Visit Provider Student in an Organized Health Care Education/Training Program | DX: Z98.890 Other specified postprocedural states (principal) | CPT/HCPCS: 97110; 97161 ==

== ENCOUNTER 2023-11-07 06:00 | Outpatient (RCR) | payer MEDICARE, SELFPAY | END 2023-12-07 23:59 | disposition home or self-care (01) | LOC: SPT 06:00 | PROVIDERS: Visit Provider Student in an Organized Health Care Education/Training Program | DX: Z98.890 Other specified postprocedural states (principal) | CPT/HCPCS: 97110 ==

== ENCOUNTER 2023-12-08 06:00 | Outpatient (RCR) | payer MEDICARE, SELFPAY | END 2024-01-07 23:59 | disposition home or self-care (01) | LOC: SPT 06:00 | PROVIDERS: PCP Family Medicine Adult Medicine; Visit Provider Student in an Organized Health Care Education/Training Program | DX: Z98.890 Other specified postprocedural states (principal) | CPT/HCPCS: 97110 ==

== ENCOUNTER → 2023-12-20 09:25 | Outpatient (BNVA) | payer MEDICARE, SELFPAY | PROVIDERS: PCP Family Medicine Adult Medicine; Visit Provider Student in an Organized Health Care Education/Training Program | DX: Z98.890 Other specified postprocedural states (principal) | CPT/HCPCS: 99213 ==

== ENCOUNTER → 2024-03-20 10:21 | Outpatient (BNVA) | payer MEDICARE, SELFPAY | PROVIDERS: PCP Family Medicine Adult Medicine; Visit Provider Student in an Organized Health Care Education/Training Program | DX: M75.101 Unspecified rotator cuff tear or rupture of right shoulder, not specified as traumatic (principal); M12.811 Other specific arthropathies, not elsewhere classified, right shoulder; M12.812 Other specific arthropathies, not elsewhere classified, left shoulder; M75.102 Unspecified rotator cuff tear or rupture of left shoulder, not specified as traumatic | CPT/HCPCS: 73030; 99213 ==

== ENCOUNTER → 2024-03-22 10:14 | Outpatient (BNVA) | payer MEDICARE, SELFPAY | PROVIDERS: PCP Family Medicine Adult Medicine; Visit Provider Nurse Practitioner Family | DX: L82.1 Other seborrheic keratosis (principal); L72.0 Epidermal cyst; D18.01 Hemangioma of skin and subcutaneous tissue; L73.8 Other specified follicular disorders; D69.2 Other nonthrombocytopenic purpura | CPT/HCPCS: 17004; 17110; 99213 ==

== ENCOUNTER → 2024-06-19 09:19 | Outpatient (BNVA) | payer MEDICARE, SELFPAY | PROVIDERS: PCP Family Medicine; Visit Provider Student in an Organized Health Care Education/Training Program | DX: M75.101 Unspecified rotator cuff tear or rupture of right shoulder, not specified as traumatic (principal); M75.102 Unspecified rotator cuff tear or rupture of left shoulder, not specified as traumatic; M19.011 Primary osteoarthritis, right shoulder; M19.012 Primary osteoarthritis, left shoulder | CPT/HCPCS: 99214 ==

== ENCOUNTER → 2024-09-14 10:21 | Outpatient (BNVA) | payer MEDICARE, SELFPAY | PROVIDERS: PCP Family Medicine; Visit Provider Nurse Practitioner Family | DX: L57.8 Other skin changes due to chronic exposure to nonionizing radiation (principal); L81.4 Other melanin hyperpigmentation; D22.5 Melanocytic nevi of trunk; L82.1 Other seborrheic keratosis; I87.2 Venous insufficiency (chronic) (peripheral); Z08 Encounter for follow-up examination after completed treatment for malignant neoplasm; Z85.828 Personal history of other malignant neoplasm of skin; L82.0 Inflamed seborrheic keratosis; R20.8 Other disturbances of skin sensation; R58 Hemorrhage, not elsewhere classified; L29.89 Other pruritus; L57.0 Actinic keratosis | CPT/HCPCS: 17000; 17110; 99213 ==

== ENCOUNTER → 2024-09-21 08:30 | Outpatient (BNVA) | payer MEDICARE, SELFPAY | PROVIDERS: PCP Family Medicine; Visit Provider Student in an Organized Health Care Education/Training Program | DX: M19.011 Primary osteoarthritis, right shoulder (principal); M19.012 Primary osteoarthritis, left shoulder | CPT/HCPCS: 20610; 77002; J3301; J9999 ==

== ENCOUNTER → 2024-10-02 09:55 | Outpatient (BNVA) | payer MEDICARE, SELFPAY | PROVIDERS: PCP Family Medicine; Visit Provider Family Medicine | DX: I10 Essential (primary) hypertension (principal); Z12.5 Encounter for screening for malignant neoplasm of prostate; N40.1 Benign prostatic hyperplasia with lower urinary tract symptoms | CPT/HCPCS: 80053; 80061; 85025; G0103 ==

== ENCOUNTER → 2024-12-25 14:42 | Outpatient (BNVA) | payer MEDICARE, SELFPAY | PROVIDERS: PCP Family Medicine; Visit Provider Student in an Organized Health Care Education/Training Program | DX: M75.101 Unspecified rotator cuff tear or rupture of right shoulder, not specified as traumatic (principal); M75.102 Unspecified rotator cuff tear or rupture of left shoulder, not specified as traumatic; M19.011 Primary osteoarthritis, right shoulder; M19.012 Primary osteoarthritis, left shoulder | CPT/HCPCS: 99213 ==

== ENCOUNTER → 2025-01-10 13:14 | Outpatient (BNVA) | payer MEDICARE, SELFPAY | PROVIDERS: PCP Family Medicine; Visit Provider Family Medicine | DX: R35.1 Nocturia (principal); N40.1 Benign prostatic hyperplasia with lower urinary tract symptoms | CPT/HCPCS: 84153 ==

== ENCOUNTER → 2025-03-18 13:18 | Outpatient (BNVA) | payer MEDICARE, SELFPAY | PROVIDERS: PCP Family Medicine; Visit Provider Nurse Practitioner Family | DX: L57.8 Other skin changes due to chronic exposure to nonionizing radiation (principal); L81.4 Other melanin hyperpigmentation; L82.1 Other seborrheic keratosis; D18.01 Hemangioma of skin and subcutaneous tissue; Z80.8 Family history of malignant neoplasm of other organs or systems; Z08 Encounter for follow-up examination after completed treatment for malignant neoplasm; Z85.828 Personal history of other malignant neoplasm of skin; L57.0 Actinic keratosis | CPT/HCPCS: 17000; 99213 ==